=== PATIENT | male | born 1965 | race Caucasian/White ===

== ENCOUNTER → 2020-07-01 | Outpatient (CLI) | payer OTHER | LOC: M.LAB 07:52 | PROVIDERS: ATTEND Internal Medicine Gastroenterology | DX: Z01.812 Encounter for preprocedural laboratory examination (principal); Z11.59 Encounter for screening for other viral diseases; Z12.11 Encounter for screening for malignant neoplasm of colon ==

== ENCOUNTER → 2020-07-07 | Outpatient (CLI) | payer OTHER | LOC: M.LAB 02:52 | PROVIDERS: ATTEND Anesthesiology | DX: E87.6 Hypokalemia (principal) ==

== ENCOUNTER → 2021-09-15 | Outpatient (CLI) | payer OTHER | LOC: M.CT 09:56 | PROVIDERS: ATTEND Nurse Practitioner Family | DX: Z13.6 Encounter for screening for cardiovascular disorders (principal); I25.10 Atherosclerotic heart disease of native coronary artery without angina pectoris ==

== ENCOUNTER → 2021-09-23 | Outpatient (CLI) | payer OTHER ==
--- NOTE | 2021-09-25 09:48 | TST ---
[place] [address] [employer] STRESS TEST Name: IDALIA LE Room: [facility]#: [id number] Admission: 09/23/21 Attend Phys: Jeaneth Barger Discharge: Date of : 63 Date of Service: 09/23/21 1531 Report #: [id number] THIS REPORT FOR: cc: Jeaneth Barger NP, Michelle NP Liston, Michael J. MD [facility] ~ cc: Jeaneth Barger NP DATE OF SERVICE: 09/23/2021 CARDIAC PROCEDURE PROCEDURE: Standard Teja protocol exercise stress test. INDICATION: Coronary artery disease with elevated calcium score. CARDIAC RISK FACTORS: Age greater than 45, hyperlipidemia, hypertension and family history of coronary artery disease. CARDIAC MEDICATIONS: Lisinopril/hydrochlorothiazide, rosuvastatin, metoprolol. The patient exercised per standard Teja protocol for 8 minutes and 33 seconds. The patient achieved 102% of the age-predicted maximum heart rate and achieved an energy equivalent of 10.16 METS. The resting blood pressure was 152/94 mmHg with a resting pulse rate of 88 beats per minute. At peak exercise, the blood pressure was 261/117 mmHg with a peak stress heart rate of 167 beats per minute. In recovery, the blood pressure was 178/114 with a recovery heart rate of 115 beats per minute. The patient achieved target heart rate without significant chest discomfort. The baseline 12-lead EKG shows sinus rhythm without significant ST segment or T-wave abnormality. EKGs obtained during and post-exercise show sinus rhythm and sinus tachycardia with no significant ST segment changes when compared to baseline. There were no stress-induced arrhythmias. IMPRESSION: 1. Clinical response, nonischemic. 2. Electrocardiographic response, nonischemic. 3. Hy[place] [address] [employer] STRESS TEST Name: IDALIA LE GLENDY Room: [facility]#: [id number] Admission: 09/23/21 Attend Phys: Jeaneth Barger Discharge: Date of : 63 Date of Service: 09/23/21 153 Report #: [id number] RECOMMENDATION: Continue medical management and aggressive risk factor modification. <ELECTRONICALLY SIGNED> By: Juan Horner MD, FACC 09/25/21 0948 [id number] Juan Horner MD, FACC /nt
== END ==
LOC: M.CRD 14:42
PROVIDERS: ATTEND Nurse Practitioner Family
DX: I11.9 Hypertensive heart disease without heart failure (principal); I25.10 Atherosclerotic heart disease of native coronary artery without angina pectoris; R93.1 Abnormal findings on diagnostic imaging of heart and coronary circulation